=== PATIENT | female | born 1980 | race Caucasian/White ===

== ENCOUNTER → 2023-09-11 12:34 | Outpatient (REF) | payer BC, SELFPAY | LOC: HWWDC 12:34 | PROVIDERS: ATTENDING PHYSICIAN Nurse Practitioner; FAMILY PHYSICIAN Internal Medicine | DX: Z12.31 Encounter for screening mammogram for malignant neoplasm of breast (principal) | CPT/HCPCS: 77063; 77067 ==

== ENCOUNTER → 2023-12-12 09:50 | Outpatient (REF) | payer BC, SELFPAY | LOC: WDC 09:50 | PROVIDERS: ATTENDING PHYSICIAN Internal Medicine | DX: R92.2 Inconclusive mammogram (principal) | CPT/HCPCS: 76641 ==

== ENCOUNTER → 2024-04-10 11:02 | Outpatient (REF) | payer BC, SELFPAY | LOC: RAD 11:02 | PROVIDERS: ATTENDING PHYSICIAN Nurse Practitioner Adult Health; FAMILY PHYSICIAN Internal Medicine | DX: N93.9 Abnormal uterine and vaginal bleeding, unspecified (principal) | CPT/HCPCS: 76830; 76856 ==

== ENCOUNTER → 2024-09-19 13:23 | Outpatient (REF) | payer BC, SELFPAY | LOC: HWWDC 13:23 | PROVIDERS: ATTENDING PHYSICIAN Nurse Practitioner; FAMILY PHYSICIAN Internal Medicine | DX: Z12.31 Encounter for screening mammogram for malignant neoplasm of breast (principal) | CPT/HCPCS: 77063; 77067 ==

== ENCOUNTER → 2024-12-11 09:45 | Outpatient (REF) | payer BC, SELFPAY | LOC: WDC 09:45 | PROVIDERS: ATTENDING PHYSICIAN Nurse Practitioner | DX: R92.2 Inconclusive mammogram (principal) | CPT/HCPCS: 76641 ==